=== PATIENT | male | born 1995 | race Two or more races ===

== ENCOUNTER 2024-04-23 15:12 | Emergency (ER) | payer BC, SELFPAY ==
[2024-04-23 15:21] VITALS: BP 116/73; PULSE 71; RESP 17; TEMP 36.4; O2SAT 100; BMI 23.3
[2024-04-23] MEDS: FLUORESCEIN SOD 1 MG STRP RIGHT EYE (15:43)
[2024-04-23] MEDS: PROPARACAINE OP SOL 0.5% 15 ML BTL RIGHT EYE (15:43)
--- NOTE | 2024-04-23 16:40 | PD.EDEYE ---
ED Eye Problem RME/HPI General Chief complaint: Eye Problems Stated complaint: I HAVE METAL IN MY EYE RIGHT Time Seen by Provider: 04/23/24 15:19 Arrival date/time: 04/23/24 15:12 Limitations: no limitations RME / HPI RME / HPI Narrative: 29-year-old male with last Tdap less than 10 years ago was here for evaluation of right eye. States he was cutting something in the attic and despite wearing glasses and a shield over it felt something lodged in his eye. He washed his eye and took out as best he could but this is not the first time he has had metal in his eye and it feels just like that. Pain with blinking. Does not wear contacts. Related Data Home Medications ?Medication ?Instructions ?Recorded ?Confirmed doxycycline hyclate 100 mg capsule 100 mg PO BID 02/04/24 02/04/24 Previous Rx's ?Medication ?Instructions ?Recorded ofloxacin 0.3 % eye drops (Ocuflox) See Rx Instructions ophthalmic 04/23/24 (eye) .COMPLEX #30 mL Allergies Allergy/AdvReac Type Severity Reaction Status Date / Time Penicillins Allergy Mild Rash Verified 04/23/24 15:14 Review of Systems Constitutional Constitutional: Reports as per HPI Eyes Eyes: Reports as per HPI ED Exam General Limitations: Present no limitations General appearance: Present alert and in no apparent distress Eye Eye exam: Present PERRL, EOMI and other (Right eye with foreign body noted to approximately 9 o'clock position of the iris) ENT ENT exam: Present normal exam, normal oropharynx and mucous membranes moist Respiratory Respiratory exam: Present normal lung sounds bilaterally Cardiovascular Cardiovascular exam: Present regular rate, normal rhythm and normal heart sounds Extremities Exam Extremities exam: Present normal inspection and full ROM Psychiatric Psychiatric exam: Present normal affect and normal mood Skin Skin exam: Present warm, dry, intact and normal color Course Quality Measures none Orders Category Date Time Status Ornelas Lamp to Bedside X1 Care 04/23/24 15:36 Completed Fluorescein Sodium [[id number]] Med 04/23/24 15:36 Discontinued 1 mg RIGHT EYE X1 ONE Proparacaine Op Yaima 0.5% [Alcaine Op Yaima 0.5%] Med 04/23/24 15:36 Discontinued See Dose Instructions RIGHT EYE X1 ONE Vital Signs Vital signs: Vital Signs Temperature 97.6 F 04/23/24 15:21 Pulse Rate 71 04/23/24 15:21 Respiratory Rate 17 04/23/24 15:21 Blood Pressure 116/73 04/23/24 15:21 Pulse Oximetry (%) 100 04/23/24 15:21 Oxygen Delivery Method Room Air 04/23/24 15:21 Procedures -ED FB Removal Eye Location: eye (R) Topical anesthetic used: proparacaine Foreign body: metal Evidence of corneal penetration: No Technique: irrigation, cotton tip swab and needle Procedure performed under: direct visualization with magnification Post-procedure medication: topical anesthetic Patient tolerated procedure: well Complications: other (None) Ornelas Lamp Exam Right eye: Flourescein uptake:: Yes Ornelas Lamp Findings: Other (Foreign body) Additional comments: Foreign body removed with 18-gauge needle aided by fluorescein and proparacaine Eye MDM Narrative MDM Narrative:: Foreign body was successfully removed however given appearance of area underneath foreign body we will treat for possible corneal ulcer although likely only corneal abrasion advised follow-up Patient data External records reviewed:: [facility] previous records Clinical information provided by:: patient Social determinants that could affect healthcare access:: none Patient has the following chronic illnesses:: None How is presenting disease/condition affected by chronic disease/condition?: no chronic disease Evaluation data The following diagnostics were reviewed and interpreted by me:: other (specify) (Ornelas lamp exam) Lab and/or radiology exams considered but not ordered:: No imaging warranted at this time Interpretation Summary: Ornelas lamp exam Medications / Prescriptions Medications or Prescriptions considered but not ordered:: Anesthetic given here Medication administrations:: Medication Administration History Discontinued Medications Fluorescein Sodium (Fluorescein Sod 1 Mg Strp) 1 mg RIGHT EYE X1 ONE Stop: 04/23/24 15:37 Last Admin: 04/23/24 15:43 Dose: 1 mg Documented By: NQ Proparacaine HCl (Proparacaine Op Yaima 0.5% 15 Ml Btl) 0 drop RIGHT EYE X1 ONE Stop: 04/23/24 15:37 Last Admin: 04/23/24 15:43 Dose: 1 drop Documented By: NQ Added medications for home Consultations Consultation(s) initiated? (list below): No Diagnosis Eye Problem Differential Diagnosis: corneal abrasion, conjunctivitis, hyphema, periorbital cellulitis, subconjunctival hemorrhage, corneal ulcer and other Most likely diagnosis given after review of the tests above:: Foreign body and corneal abrasion Admission Indicated Admission indicated?: not indicated Admission Request Was there a request for admission?: No Disposition Plan Disposition Plan: Discharge Discharge Attestation Discharge Attestation: The patient and all family members were given an opportunity to ask questions and understood the discharge instructions. Discharge instructions specifically effects, indications for sooner follow up or return to the emergency department, and the expected course of current diagnosis. Patient condition: Stable Discharge Plan Plan Patient Disposition: HOME (Self Care) Disposition Comment: Follow-up with PCP in 2 to 3 days Prescriptions/Referrals Prescriptions/Med Rec: New ofloxacin [Ocuflox] 0.3 % drops See Rx Instructions ophthalmic (eye) .COMPLEX Qty: 30 1RF Rx Instructions: 2GTT into affected eye q 30min for the first 2days while awake, followed by 2GTT q 1hr while awake x 4days, then2 GTT qid until cured No Action doxycycline hyclate 100 mg capsule 100 mg PO BID Problem List Clinical Impression: Foreign body in eyeball, left, Corneal abrasion Patient/Caregiver Discharge Instructions Education Materials: Corneal Injury Print Language: Setswana Stand Alone Forms: [employer] Award Info., Patient Portal Info Letter PA/[employer] Supervising Physician PA/[employer] Supervising Physician: Dr. ferrera
--- NOTE | 2024-06-12 06:25 | PD.EDURI ---
Upper Respiratory Inf. RME/HPI General Chief Complaint: Eye Problems Stated Complaint: I HAVE METAL IN MY EYE RIGHT Time Seen by Provider: 04/23/24 15:19 Arrival date/time: 04/23/24 15:12 Limitations: no limitations RME / HPI RME / HPI Narrative: 29-year-old male with last Tdap less than 10 years ago was here for evaluation of right eye. States he was cutting something in the attic and despite wearing glasses and a shield over it felt something lodged in his eye. He washed his eye and took out as best he could but this is not the first time he has had metal in his eye and it feels just like that. Pain with blinking. Does not wear contacts. Related Data Home Medications ?Medication ?Instructions ?Recorded ?Confirmed doxycycline hyclate 100 mg capsule 100 mg PO BID 02/04/24 02/04/24 Previous Rx's ?Medication ?Instructions ?Recorded ofloxacin 0.3 % eye drops (Ocuflox) See Rx Instructions ophthalmic 04/23/24 (eye) .COMPLEX #30 mL Allergies Allergy/AdvReac Type Severity Reaction Status Date / Time Penicillins Allergy Mild Rash Verified 04/23/24 15:14 Review of Systems Review of Systems Systems Reviewed: All systems reviewed, normal except as documented Eyes Eyes: Reports as per HPI ED Exam General Limitations: Present no limitations General appearance: Present alert and in no apparent distress Head Head exam: Present atraumatic Eye Eye exam: Present PERRL, EOMI and other (Right eye injection) ENT ENT exam: Present normal exam, normal oropharynx and mucous membranes moist Respiratory Respiratory exam: Present normal lung sounds bilaterally Cardiovascular Cardiovascular exam: Present regular rate, normal rhythm and normal heart sounds Psychiatric Psychiatric exam: Present normal affect and normal mood Skin Skin exam: Present warm, dry, intact and normal color Course Quality Measures none Orders Category Date Time Status Ornelas Lamp to Bedside X1 Care 04/23/24 15:36 Completed Fluorescein Sodium [[id number]] Med 04/23/24 15:36 Discontinued 1 mg RIGHT EYE X1 ONE Proparacaine Op Yaima 0.5% [Alcaine Op Yaima 0.5%] Med 04/23/24 15:36 Discontinued See Dose Instructions RIGHT EYE X1 ONE Vital Signs Vital signs: Vital Signs Temperature 97.6 F 04/23/24 15:21 Pulse Rate 71 08/24/24 15:21 Respiratory Rate 17 04/23/24 15:21 Blood Pressure 116/73 04/23/24 15:21 Pulse Oximetry (%) 100 04/23/24 15:21 Oxygen Delivery Method Room Air 04/23/24 15:21 Procedures -ED Ornelas Lamp Exam Right eye: Flourescein uptake:: Yes Ornelas Lamp Findings: Corneal abrasion Additional comments: Removed majority of foreign body that could be with 18-gauge needle, no rust ring noted Upper Respiratory Infection Patient data External records reviewed:: [facility] previous records Clinical information provided by:: patient Social determinants that could affect healthcare access:: none Patient has the following chronic illnesses:: None How is presenting disease/condition affected by chronic disease/condition?: no chronic disease Evaluation data The following diagnostics were reviewed and interpreted by me:: other (specify) (None to interpret) Lab and/or radiology exams considered but not ordered:: None Interpretation Summary: Mother with lumbar interpreted Medications / Prescriptions Medications or Prescriptions considered but not ordered:: All medications considered were sent Medication administrations:: Medication Administration History Discontinued Medications Fluorescein Sodium (Fluorescein Sod 1 Mg Strp) 1 mg RIGHT EYE X1 ONE Stop: 04/23/24 15:37 Last Admin: 04/23/24 15:43 Dose: 1 mg Documented By: NQ Proparacaine HCl (Proparacaine Op Yaima 0.5% 15 Ml Btl) 0 drop RIGHT EYE X1 ONE Stop: 04/23/24 15:37 Last Admin: 04/23/24 15:43 Dose: 1 drop Documented By: NQ Precautions and medication sent Consultations Consultation(s) initiated? (list below): No Diagnosis Upper Respiratory Differential Diagnosis: viral infection and other (Corneal abrasion, corneal ulcer, hyphema) Most likely diagnosis given after review of the tests above:: Corneal ulcer and foreign body removed Admission Indicated Admission indicated?: not indicated Admission Request Was there a request for admission?: No Disposition Plan Disposition Plan: Discharge Discharge Attestation Discharge Attestation: The patient and all family members were given an opportunity to ask questions and understood the discharge instructions. Discharge instructions specifically effects, indications for sooner follow up or return to the emergency department, and the expected course of current diagnosis. Patient condition: Stable Discharge Plan Plan Patient Disposition: HOME (Self Care) Disposition Comment: Follow-up with PCP in 2 to 3 days Prescriptions/Referrals Prescriptions/Med Rec: New ofloxacin [Ocuflox] 0.3 % drops See Rx Instructions ophthalmic (eye) .COMPLEX Qty: 30 1RF Rx Instructions: 2GTT into affected eye q 30min for the first 2days while awake, followed by 2GTT q 1hr while awake x 4days, then2 GTT qid until cured No Action doxycycline hyclate 100 mg capsule 100 mg PO BID Problem List Clinical Impression: Foreign body in eyeball, left, Corneal abrasion Patient/Caregiver Discharge Instructions Education Materials: Corneal Injury Print Language: Portuguese Stand Alone Forms: [employer] Award Info., Patient Portal Info Letter PA/[employer] Supervising Physician PA/[employer] Supervising Physician: Dr. ferrera
== END 2024-04-23 16:30 | disposition home or self-care (01) ==
LOC: SERX 16:20
PROVIDERS: Emergency Provider Emergency Medicine
DX: T15.01XA Foreign body in cornea, right eye, initial encounter (principal); W44.8XXA Other foreign body entering into or through a natural orifice, initial encounter
CPT/HCPCS: 65205; 99283